=== PATIENT | female | born 1960 | race Caucasian/White ===

== ENCOUNTER 2024-05-21 06:23 | Emergency (ER) | payer BC, MEDICAID ==
[2024-05-21] MEDS: Ketorolac 60 MG/2 ML SDV IM ONE (08:59)
== END 2024-05-21 09:15 ==
LOC: JD.ED 06:23
DX: S82.54XA Nondisplaced fracture of medial malleolus of right tibia, initial encounter for closed fracture (principal); S82.831A Other fracture of upper and lower end of right fibula, initial encounter for closed fracture; W01.0XXA Fall on same level from slipping, tripping and stumbling without subsequent striking against object, initial encounter
CPT/HCPCS: 72170; 73552; 73590; 73610; 96372; 99283; J1885

== ENCOUNTER 2025-01-21 12:53 | Emergency (ER) | payer SELFPAY ==
[2025-01-21 13:41] LABS: BASOPHILS ABSOLUTE AUTO 0.1 K/mm3 (0.0-0.2); BASOPHILS PERCENT AUTO 1.1 % (0.0-1.0); EOSINOPHILS ABSOLUTE AUTO 0.1 K/mm3 (0.0-0.4); EOSINOPHILS PERCENT AUTO 1.2 % (0.0-6.0); IMMATURE GRAN ABSOLUTE AUTO 0.05 K/mm3 (0.00-0.05); IMMATURE GRAN PERCENT AUTO 0.5 % (0.0-0.4); LYMPHOCYTES ABSOLUTE AUTO 1.8 K/mm3 (1.0-4.8); LYMPHOCYTES PERCENT AUTO 17.2 % (24.0-44.0); MEAN PLATELET VOLUME 9.2 fl (9.4-12.3); MONOCYTES ABSOLUTE AUTO 1.0 K/mm3 (0.0-0.8); MONOCYTES PERCENT AUTO 9.9 % (0.0-8.0); NEUTROPHILS ABSOLUTE AUTO 7.2 K/mm3 (1.8-7.7); NEUTROPHILS PERCENT AUTO 70.1 % (41.0-71.0); NRBC ABSOLUTE 0.00 (0.00-0.02); NRBC PERCENT 0.0 % (0.0-0.2); PLATELET COUNT,PLT 333 K/mm3 (150-400); RED BLOOD CELL COUNT 5.14 M/mm3 (4.10-5.30); WHITE BLOOD CELL COUNT,WBC 10.20 K/mm3 (3.9-11.3)
[2025-01-21 14:06] LABS: INR 1.11
[2025-01-21 14:08] LABS: PTT,PARTIAL THROMBOPLSTIN TIME 25.5 SECONDS (21.7-31.4)
[2025-01-21 14:11] LABS: A/G RATIO 0.9 (1-2); ALANINE AMINOTRANSFERASE,ALT 41.0 U/L (14-59); ASPARTATE AMNIOTRANSFERASE,AST 31.0 U/L (15-37); BILIRUBIN TOTAL 0.4 mg/dL (0.2-1.0); BLOOD UREA NITROGEN,BUN 17.0 mg/dL (7-18); CARBON DIOXIDE,CO2 24.0 mEq/L (21-32); CHLORIDE,CL 106.0 mEq/L (98-107); CREATININE 1.3 mg/dL (0.55-1.02); EST CRCL DRUG DOSING (CG) 35.49 mL/min; ESTIMATED GFR 46.0 mL/min (>60); GLUCOSE RANDOM 178.0 mg/dL (70-99); POTASSIUM,K 3.5 mEq/L (3.5-5.1); PROTEIN TOTAL,TP 7.7 g/dl (6.4-8.2); SODIUM,NA 143.0 mEq/L (136-145)
[2025-01-21 14:19] LABS: D-DIMER QUANTITATIVE 6.99 mg/L (0.19-0.50)
[2025-01-21 14:21] LABS: TROPONIN I HIGH SENSITIVITY 681.0 pg/mL (<=51)
[2025-01-21] MEDS: Heparin Sodium 5,000 Units/ML Vial IVPUSH ONE ×2 (14:28→15:00)
[2025-01-21] MEDS: Sodium Chloride 0.9% 10 ML Syringe FLUSH PRN (14:46)
[2025-01-21] MEDS: Iopamidol 755 Mg/ML 100 ML Bottle IVPUSH ONE (14:46)
[2025-01-21] MEDS: Heparin Sodium/D5W 250 ML IV SCH ×2 (14:47→15:01)
== END 2025-01-21 16:20 ==
LOC: JD.ED 12:53
DX: I26.02 Saddle embolus of pulmonary artery with acute cor pulmonale (principal); Z79.899 Other long term (current) drug therapy
CPT/HCPCS: 36415; 71045; 71275; 80053; 83735; 83880; 84484; 85025; 85379; 85610; 85730; 93005; 96365; 96366; 99285; J1644; Q9967; 93010